=== PATIENT | female | born 1990 | race Caucasian/White ===

== ENCOUNTER 2018-12-01 23:40 | Emergency (ER) | payer SELFPAY ==
[~2018-12-01] VITALS: Ht 167.6 cm; Wt 72.7 kg
[2018-12-01 23:44] VITALS: Ht 167.6 cm; Wt 72.7 kg
[2018-12-01] MEDS ORDERED: TOPAMAX200 MG PO (23:47)
[2018-12-01] MEDS ORDERED: AMOXICILLIN500 M1 PO (23:48)
[2018-12-01] MEDS ORDERED: AMITRIPTYLINE100 MG (23:48)
[2018-12-01] MEDS ORDERED: NAPROSYN500 MG (23:48)
[2018-12-01] MEDS ORDERED: CYMBALTA60 MG (23:49)
[2018-12-01] MEDS ORDERED: LITHIUM CARBON300 MG PO (23:49)
[2018-12-02 01:43] LABS: BASOPHILS 0.3 % (0-2); EOSINOPHILS 2.6 % (0-7); HEMATOCRIT 38.7 % (36.0-48.0); HEMOGLOBIN 13.2 g/dL (12-16); IMMATURE GRANULOCYTES 0.3 % (0-5); LYMPHOCYTES 23.3 % (15-50); MCH 31.2 pg (26.0-34.0); MCHC 34.1 g/dL (31.0-37.0); MCV 91.5 fL (80.0-100.0); MEAN PLATELET VOLUME 11.5 fL (7.4-10.4); MONOCYTES 8.4 % (2-11); NEUTROPHILS 65.1 % (40-80); PLATELET COUNT 178 10x3/uL (130-400); RBC 4.23 10x6/uL (4.00-5.40); RDW 12.5 % (11.5-14.5); WBC 11.5 10x3/uL (4.8-10.8)
[2018-12-02 02:05] LABS: ALKALINE PHOSPHATASE 45 U/L (46-116); ALT (SGPT) 16 U/L (10-68); BILIRUBIN - TOTAL 0.16 mg/dL (0.2-1.3); CALC OSMOLALITY 281 mosm/kg (275-300); CALCIUM 8.1 mg/dL (8.5-10.1); CARBON DIOXIDE 24.7 mmol/L (21.0-32.0); CHLORIDE - SERUM 106 mmol/L (98-107); CREATININE - SERUM 0.9 mg/dL (0.6-1.3); GLUCOSE 96 mg/dL (74-106); POTASSIUM - SERUM 3.9 mmol/L (3.5-5.1); PROTEIN - SERUM 5.8 g/dL (6.4-8.2); SODIUM 142 mmol/L (136-145); UREA NITROGEN 9 mg/dL (7-18); eGFR NON AFRICAN AMERICAN 78 mL/min (90-120)
[2018-12-02 02:23] LABS: UDS - AMPHET NEGATIVE QUAL (NEGATIVE); UDS - BARB NEGATIVE QUAL (NEGATIVE); UDS - BENZO NEGATIVE QUAL (NEGATIVE); UDS - COCAINE NEGATIVE QUAL (NEGATIVE); UDS - OPIATE NEGATIVE QUAL (NEGATIVE); UDS - PCP NEGATIVE QUAL (NEGATIVE); UDS - THC NEGATIVE QUAL (NEGATIVE)
[2018-12-02 02:36] LABS: APPEARANCE HAZY (CLEAR); BILIRUBIN NEGATIVE (NEGATIVE); COLOR YELLOW (YELLOW); GLUCOSE NEGATIVE (NEGATIVE); KETONE NEGATIVE (NEGATIVE); NITRITE NEGATIVE (NEGATIVE); PROTEIN NEGATIVE (NEGATIVE); SPECIFIC GRAVITY 1.015 (1.005-1.020); UROBILINOGEN NORMAL (NORMAL)
[2018-12-02 02:38] LABS: BACTERIA MODERATE /hpf (NONE SEEN); EPITHELIAL CELLS 0-5 /hpf (0-5); RED CELLS - URINE 0-5 /hpf (0-5)
[2018-12-02 03:18] VITALS: BP 115/65
== END 2018-12-02 03:19 | disposition home or self-care (01) ==
LOC: D.ER 23:40
PROVIDERS: Family Medicine
DX: T42.8X2A Poisoning by antiparkinsonism drugs and other central muscle-tone depressants, intentional self-harm, initial encounter (principal); Y92.019 Unspecified place in single-family (private) house as the place of occurrence of the external cause; R00.0 Tachycardia, unspecified; F17.200 Nicotine dependence, unspecified, uncomplicated

== ENCOUNTER 2019-06-11 14:55 | Emergency (ER) | payer MEDICAID ==
[~2019-06-11] VITALS: Ht 167.6 cm; Wt 70.5 kg
[~2019-06-11 14:55] MED LIST: AMITRIPTYLINE100 MG; AMOXICILLIN500 M1 PO; CYMBALTA60 MG; LITHIUM CARBON300 MG PO; NAPROSYN500 MG; TOPAMAX200 MG PO
[2019-06-11 14:56] VITALS: Ht 167.6 cm; Wt 70.5 kg
[2019-06-11] MEDS ORDERED: ULTRAM50 MG PO (17:18)
[2019-06-11] MEDS ORDERED: VOLTAREN75 MG PO (17:18)
[2019-06-11] MEDS ORDERED: POLYSPORIN OINT15 G1 TOPICAL (17:22)
[2019-06-11 17:41] VITALS: BP 147/91
== END 2019-06-11 17:42 | disposition home or self-care (01) ==
LOC: D.ER 14:55
DX: M79.602 Pain in left arm (principal); Y02.0XXA Assault by pushing or placing victim in front of motor vehicle, initial encounter; Y93.89 Activity, other specified; Y92.89 Other specified places as the place of occurrence of the external cause